=== PATIENT | female | born 1975 | race Caucasian/White ===

== ENCOUNTER 2017-05-10 22:16 | Emergency (ER) | payer MEDICAID, OTHER ==
[~2017-05-10] VITALS: Ht 157.5 cm; Wt 64.0 kg
[2017-05-11 01:35] VITALS: BP 118/74
== END 2017-05-11 01:35 | disposition home or self-care (01) ==
LOC: ER 22:16
DX: J06.9 Acute upper respiratory infection, unspecified (principal); J45.909 Unspecified asthma, uncomplicated; F12.10 Cannabis abuse, uncomplicated; Z87.01 Personal history of pneumonia (recurrent)
CPT/HCPCS: 71045; 99283

== ENCOUNTER 2021-12-31 09:51 | Emergency (ER) | payer MEDICAID, OTHER ==
[~2021-12-31] VITALS: Ht 160 cm; Wt 66.0 kg
[2021-12-31 09:56] VITALS: BP 132/81
[2021-12-31] MEDS ORDERED: ALBU18HF2 IH (13:39)
== END 2021-12-31 13:54 | disposition home or self-care (01) ==
LOC: ER 10:58
DX: J06.9 Acute upper respiratory infection, unspecified (principal); J45.909 Unspecified asthma, uncomplicated; Z86.16 Personal history of COVID-19
CPT/HCPCS: 71045; 99283

== ENCOUNTER 2023-02-14 16:31 | Emergency (ER) | payer MEDICAID ==
[~2023-02-14] VITALS: Ht 162.6 cm; Wt 95.0 kg
[~2023-02-14 16:31] MED LIST: ALBU18HF2 IH; ATOR20TA65 PO; KETO10TA2 PO; [UNRECOGNIZED DRUG - CODE] MT
[2023-02-14 16:37] VITALS: BP 147/83; PULSE 102; RESP 18; TEMP 98.3; O2SAT 99
[2023-02-14 17:08] LABS: BASOPHILS % 0.3 % (0.0-2.0); EOSINOPHILS % 1.6 % (0.0-5.0); HEMOGLOBIN. 7.2 g/dL (12.0-16.0); LYMPHOCYTES % 20.5 % (20.0-50.0); MEAN CORPUSCULAR HEMOGLOBIN 17.6 pg (28.0-32.0); MEAN CORPUSCULAR VOLUME 60.8 fL (81.0-99.0); MEAN PLATELET VOLUME 6.7 fl (7.4-10.4); MONOCYTES % 7.2 % (2.0-8.0); NEUTROPHILS % 70.4 % (40.0-76.0); PLATELET 571 x1000/uL (130-400); RED BLOOD CELL COUNT 4.11 mill/uL (4.2-5.4); RED CELL DISTRIBUTION WIDTH 18.4 % (11.6-14.6); WHITE BLOOD COUNT 12.2 x1000/uL (4.5-11.0)
[2023-02-14 17:11] LABS: DIFFERENTIAL COMMENT 1
[2023-02-14 17:12] LABS: ADD RBC MORPHOLOGY YES
[2023-02-14 17:15] LABS: CHLORIDE 109 mEq/L (98-107); INDEX HEMOLYSI 1 (1-3); INDEX ICTERIC 1 (1-4); INDEX LIPEMIC 1 (1-3); POTASSIUM 3.4 mEq/L (3.5-5.1); SODIUM 140 mEq/L (136-145)
[2023-02-14 17:21] LABS: ALANINE AMINOTRANSFERASE 13 IU/L (13-61); ALBUMIN 3.4 g/dL (3.4-5.0); ASPARTATE AMINOTRANSFERASE 7 IU/L (15-37); BILIRUBIN TOTAL 0.2 mg/dL (0.1-1.0); CALCIUM 9.1 mg/dL (8.5-10.1); CARBON DIOXIDE 25 mEq/L (21-32); CREATININE 0.8 mg/dL (0.6-1.3); GLUCOSE 126 mg/dL (70-105); UREA NITROGEN BLOOD 11 mg/dL (7-21)
[2023-02-14 17:22] LABS: PROTEIN TOTAL 7.7 g/dL (6.0-8.3)
[2023-02-14 18:11] LABS: ANISOCYTOSIS 2+; HYPOCHROMASIA 3+; MICROCYTOSIS 3+; OVALOCYTES 1+; PLATELET ESTIMATE INCREASED
== END 2023-02-14 17:46 | disposition home or self-care (01) ==
LOC: ER 16:31
DX: D64.9 Anemia, unspecified (principal); J45.909 Unspecified asthma, uncomplicated; Z98.890 Other specified postprocedural states
CPT/HCPCS: 36415; 80053; 85025; 86850; 86900; 99283

== ENCOUNTER 2023-04-26 17:27 | Emergency (ER) | payer MEDICAID ==
[~2023-04-26] VITALS: Ht 160 cm; Wt 89.6 kg
[2023-04-26 17:39] VITALS: BP 141/69; PULSE 84; RESP 16; TEMP 98.2; O2SAT 100
[2023-04-26] MEDS ORDERED: ACET325T52 MT (20:53)
[2023-04-26] MEDS ORDERED: ONDA4TAB11 PO (20:53)
== END 2023-04-26 21:32 | disposition home or self-care (01) ==
LOC: ER 17:54
DX: B34.9 Viral infection, unspecified (principal); J45.909 Unspecified asthma, uncomplicated; Z98.890 Other specified postprocedural states
CPT/HCPCS: 99283

== ENCOUNTER 2023-09-02 13:41 | Emergency (ER) | payer MEDICAID ==
[~2023-09-02] VITALS: Ht 154.9 cm; Wt 62.0 kg
[~2023-09-02 13:41] MED LIST changes: +ACET325T52 MT; +ONDA4TAB11 PO
[2023-09-02 13:57] VITALS: TEMP 98.1; O2SAT 100
[2023-09-02 14:18] LABS: CLARITY URINE CLEAR (CLEAR); COLOR URINE DARK YELLOW (YELLOW); GLUCOSE URINE NEGATIVE (NEGATIVE); KETONES URINE 1+ (NEGATIVE); LEUKOCYTE ESTERASE URINE NEGATIVE (NEGATIVE); NITRITE URINE NEGATIVE (NEGATIVE); OCCULT BLOOD URINE 2+ (NEGATIVE); PROTEIN URINE 1+ (NEGATIVE); SPECIFIC GRAVITY URINE 1.023 (1.005-1.030)
[2023-09-02 14:40] LABS: CHLORIDE 107 mEq/L (98-107); POTASSIUM 3.4 mEq/L (3.5-5.1); SODIUM 137 mEq/L (136-145)
[2023-09-02 14:41] LABS: CARBON DIOXIDE 24 mEq/L (21-32)
[2023-09-02 14:45] LABS: MUCUS URINE 1+ /lpf (< = 2+); RBC URINE 0-2 /hpf (0-2); SQUAMOUS EPITHELIAL CELL URINE 2+ /lpf (RARE/1+)
[2023-09-02 14:46] LABS: BACTERIA URINE TRACE; WBC URINE 0-2 /hpf (0-2)
[2023-09-02 14:46] LABS: CREATININE 0.9 mg/dL (0.6-1.0); GLUCOSE 106 mg/dL (70-105)
[2023-09-02 14:47] LABS: UREA NITROGEN BLOOD 9 mg/dL (9-23)
[2023-09-02 14:48] LABS: ALANINE AMINOTRANSFERASE 28 IU/L (10-49); ALBUMIN 4.6 g/dL (3.2-4.8); ASPARTATE AMINOTRANSFERASE 19 IU/L (<34)
[2023-09-02 14:49] LABS: BILIRUBIN TOTAL 0.5 mg/dL (0.1-1.0); PROTEIN TOTAL 7.5 g/dL (6.0-8.3)
[2023-09-02 14:59] LABS: HCG SCREEN NEGATIVE
[2023-09-02] MEDS ORDERED: METOCLOPRAMIDE HCL 10MG TABLET PO ONE (15:00)
[2023-09-02] MEDS ORDERED: KETOROLAC 15MG/ML VIAL IM ONE (15:00)
[2023-09-02 15:16] LABS: HEMATOCRIT. 29.3 % (36.0-48.0); MEAN CORPUSCULAR HEMOGLOBIN 19.6 pg (28.0-32.0); MEAN CORPUSCULAR HGB CONC 30.8 g/dL (31.0-37.0); MEAN CORPUSCULAR VOLUME 63.8 fL (81.0-99.0); MEAN PLATELET VOLUME 7.2 fl (7.4-10.4); PLATELET 652 x1000/uL (130-400); RED BLOOD CELL COUNT 4.59 mill/uL (4.2-5.4); RED CELL DISTRIBUTION WIDTH 18.8 % (11.6-14.6)
[2023-09-02 15:17] LABS: DIFFERENTIAL COMMENT 1
[2023-09-02 17:21] LABS: ANISOCYTOSIS 1+; HYPOCHROMASIA 2+; MICROCYTOSIS 3+; PLATELET ESTIMATE MARKEDLY INCREASED
[2023-09-02 17:22] LABS: OVALOCYTES 1+
[2023-09-02 18:26] VITALS: BP 144/92; PULSE 104; RESP 18
[2023-09-02] MEDS: METOCLOPRAMIDE HCL 10MG TABLET PO NR (18:26)
[2023-09-02] MEDS: KETOROLAC 15MG/ML VIAL IM NR (18:26)
== END 2023-09-02 18:45 | disposition home or self-care (01) ==
LOC: ER 13:41
DX: N93.8 Other specified abnormal uterine and vaginal bleeding (principal); J45.909 Unspecified asthma, uncomplicated; R10.2 Pelvic and perineal pain
CPT/HCPCS: 80053; 81003; 81025; 84703; 85025; 86850; 86900; 86901; 36415; 76856; 96372; 99285; J8597; J1885; Z7610

== ENCOUNTER 2024-03-26 10:40 | Emergency (ER) | payer MEDICAID ==
[~2024-03-26] VITALS: Ht 160 cm; Wt 68.9 kg
[~2024-03-26 10:40] MED LIST changes: +ACET-3800 MT; -ACET325T52 MT; +ATOR20TA MT; +ONDA-239 PO; -ONDA4TAB11 PO; +SULF1TAB48 MT
[2024-03-26 10:48] VITALS: BP 117/40; PULSE 79; RESP 16; TEMP 98.9; O2SAT 100
== END 2024-03-26 11:43 | disposition left against medical advice (07) ==
LOC: ER 10:40
DX: R11.2 Nausea with vomiting, unspecified (principal); Z53.21 Procedure and treatment not carried out due to patient leaving prior to being seen by health care provider
CPT/HCPCS: 93005